=== PATIENT | male | born 1955 | race Caucasian/White ===

== ENCOUNTER 2022-10-11 13:25 | Outpatient (RCR) | payer OTHER, MEDICARE ==
[~2022-10-11 13:25] MED LIST: LEUPROLIDE 22.5 MG SYRINGE (ELIGARD) SQ SCH
== END 2022-10-27 | disposition home or self-care (01) ==
LOC: ONC 13:25
PROVIDERS: ATTEND Internal Medicine Hematology & Oncology
DX: Z51.11 Encounter for antineoplastic chemotherapy (principal); C61 Malignant neoplasm of prostate
CPT/HCPCS: G0463 ×2; 96402; 99204; 99205

== ENCOUNTER 2023-01-10 12:43 | Outpatient (RCR) | payer OTHER, MEDICARE | END 2023-01-26 | disposition home or self-care (01) | LOC: ONC 12:43 | PROVIDERS: ATTEND Internal Medicine Hematology & Oncology | DX: Z51.11 Encounter for antineoplastic chemotherapy (principal); C61 Malignant neoplasm of prostate; L29.9 Pruritus, unspecified | CPT/HCPCS: 76873; 84153; 96402; G0463 ×2; 99213; 99214 ==

== ENCOUNTER → 2023-02-01 | Outpatient (CLI) | payer OTHER, MEDICARE ==
[~2023-02-01] VITALS: Ht 175.3 cm; Wt 86.5 kg
[~2023-02-01] MED LIST changes: +ACET-11 PO; +ASHW300C2 PO; +CHOL100L MC; +CIDE300T3 PO; +CIPR-226 PO; -LEUPROLIDE 22.5 MG SYRINGE (ELIGARD) SQ SCH; +MAGN100T5 PO; +MECO10005 PO; +OMEP20CA18 PO; +VITA-246 PO; +ZINC7.5T PO
== END | disposition home or self-care (01) ==
LOC: PREOP 05:42
PROVIDERS: ATTEND Radiology Radiation Oncology
DX: Z01.818 Encounter for other preprocedural examination (principal)